=== PATIENT | male | born 1940 | race Caucasian/White ===

== ENCOUNTER 2018-08-11 10:36 | Inpatient (IN) ==
[2018-08-11 13:55] LABS: BASOPHILS % (AUTO) 0.4 % (0.2-1.0); EOSINOPHILS # (AUTO) 0.4 x10^3/uL (0.0-0.2); EOSINOPHILS % (AUTO) 4.3 % (0.9-2.9); HEMATOCRIT 32.9 % (42.0-54.0); HEMOGLOBIN 11.6 g/dL (13.5-18.0); LYMPHOCYTES # (AUTO) 1.2 X10^3/uL (1.3-2.9); LYMPHOCYTES % (AUTO) 13.1 % (21.0-51.0); MEAN CORPUSCULAR HEMOGLOBIN 31.9 pg (27.0-34.0); MEAN CORPUSCULAR HGB CONC 35.3 g/dL (33.0-35.0); MEAN CORPUSCULAR VOLUME 90.2 fL (80.0-100.0); MEAN PLATELET VOLUME 8.1 fL (7.4-11.0); MONOCYTES # (AUTO) 1.1 x10^3/uL (0.3-0.8); MONOCYTES % (AUTO) 12.1 % (0.0-13.0); NEUTROPHILS # (AUTO) 6.6 x10^3/uL (2.2-4.8); NEUTROPHILS % (AUTO) 70.1 % (42.0-75.0); PLATELET COUNT 177 X10^3/uL (150.0-450.0); RED BLOOD COUNT 3.65 X10^6/uL (4.7-6.0); RED CELL DISTRIBUTION WIDTH 13.5 % (11.6-16.5); WHITE BLOOD COUNT 9.4 X10^3/uL (3.6-10.0)
[2018-08-11 14:04] LABS: ALANINE AMINOTRANSFERASE 34 Units/L (12-78); ALBUMIN 3.1 g/dL (3.4-5.0); ALKALINE PHOSPHATASE 78 Units/L (46-116); ASPARTATE AMINO TRANSFERASE 36 Units/L (15-37); BLOOD UREA NITROGEN 41 mg/dL (7-18); CALCIUM 8.4 mg/dL (8.5-10.1); CARBON DIOXIDE 24.7 mmol/L (21-32); CHLORIDE 102 mmol/L (98-107); COR CA(FOR HYPOALB) 9.1 mg/dL (8.5-10.1); CREATININE 1.92 mg/dL (0.70-1.30); SODIUM 136 mmol/L (136-145); TOTAL PROTEIN 6.7 g/dL (6.4-8.2); eGFR NON BLACK RACES 36 (>60)
[2018-08-11 14:31] VITALS: BMI 25.1
[2018-08-11 14:40] LABS: BILIRUBIN,URINE NEGATIVE (NEGATIVE); BLOOD/HEMOGLOBIN,URINE NEGATIVE (NEGATIVE); GLUCOSE, URINE NEGATIVE (NEGATIVE); KETONES,URINE NEGATIVE (NEGATIVE); LEUKOCYTE ESTERASE ,URINE NEGATIVE (NEGATIVE); NITRITES,URINE NEGATIVE (NEGATIVE); PROTEIN,URINE 1+ (NEGATIVE); UROBILINOGEN,URINE NORMAL (NORMAL)
[2018-08-11 14:47] LABS: APPEARANCE,URINE CLEAR (CLEAR); BACTERIA,URINE NEGATIVE /HPF (NEGATIVE); COLOR,URINE YELLOW (YELLOW); RBC,URINE 0-2 /HPF (NONE SEEN); SQUAMOUS EPITHELIAL CELL,UR RARE /HPF (NEGATIVE)
[2018-08-11] MEDS: FLAGYL IV PREMIX 500 MG BAG 500 MG/100 ML BAG IV SCH ×2 (15:40→22:00)
[2018-08-11] MEDS: NS 1000 ML 1,000 ML IV SCH (15:40)
--- NOTE | 2018-08-11 19:12 | DR.UPDATE ---
H&P Update History and Physical Update: WAS SEEN IN THE OFFICE TODAY. A H&P WAS COMPLETED PRIOR TO ADMISSION. PATIENT HAS BEEN SEEN AND EXAMINED WITH NO CHANGES NOTED TO H&P. Changes noted: NO Yes with the following:
[2018-08-11] MEDS: FLOMAX PO SCH (20:35)
[2018-08-11] MEDS: CIPRO IV 400 MG PREMIX* 400 MG/200 ML IV.SOLN. IV SCH (20:35)
[2018-08-12 05:13] LABS: BASOPHILS % (AUTO) 0.7 % (0.2-1.0); EOSINOPHILS # (AUTO) 0.5 x10^3/uL (0.0-0.2); EOSINOPHILS % (AUTO) 8.5 % (0.9-2.9); HEMATOCRIT 33.4 % (42.0-54.0); HEMOGLOBIN 11.8 g/dL (13.5-18.0); LYMPHOCYTES # (AUTO) 1.2 X10^3/uL (1.3-2.9); LYMPHOCYTES % (AUTO) 19.5 % (21.0-51.0); MEAN CORPUSCULAR HEMOGLOBIN 31.7 pg (27.0-34.0); MEAN CORPUSCULAR HGB CONC 35.3 g/dL (33.0-35.0); MEAN CORPUSCULAR VOLUME 89.9 fL (80.0-100.0); MEAN PLATELET VOLUME 8.5 fL (7.4-11.0); MONOCYTES # (AUTO) 0.8 x10^3/uL (0.3-0.8); MONOCYTES % (AUTO) 13.2 % (0.0-13.0); NEUTROPHILS # (AUTO) 3.6 x10^3/uL (2.2-4.8); NEUTROPHILS % (AUTO) 58.1 % (42.0-75.0); PLATELET COUNT 172 X10^3/uL (150.0-450.0); RED BLOOD COUNT 3.71 X10^6/uL (4.7-6.0); RED CELL DISTRIBUTION WIDTH 13.3 % (11.6-16.5); WHITE BLOOD COUNT 6.2 X10^3/uL (3.6-10.0)
[2018-08-12] MEDS: FLAGYL IV PREMIX 500 MG BAG 500 MG/100 ML BAG IV SCH ×3 (05:16→22:15)
[2018-08-12 05:20] LABS: ALANINE AMINOTRANSFERASE 31 Units/L (12-78); ALKALINE PHOSPHATASE 74 Units/L (46-116); ASPARTATE AMINO TRANSFERASE 32 Units/L (15-37); BLOOD UREA NITROGEN 34 mg/dL (7-18); CALCIUM 8.7 mg/dL (8.5-10.1); CARBON DIOXIDE 27.2 mmol/L (21-32); CHLORIDE 106 mmol/L (98-107); COR CA(FOR HYPOALB) 9.5 mg/dL (8.5-10.1); CREATININE 1.79 mg/dL (0.70-1.30); SODIUM 140 mmol/L (136-145); TOTAL PROTEIN 6.6 g/dL (6.4-8.2); eGFR NON BLACK RACES 39 (>60)
[2018-08-12] MEDS: NS 1000 ML 1,000 ML IV SCH ×2 (05:39→18:11)
[2018-08-12] MEDS ORDERED: ZESTRIL TAB 20 MG ONE (08:14)
[2018-08-12] MEDS: ZESTRIL TAB 20 MG PO SCH (09:41)
[2018-08-12] MEDS: CIPRO IV 400 MG PREMIX* 400 MG/200 ML IV.SOLN. IV SCH ×2 (09:41→20:51)
[2018-08-12] MEDS ORDERED: ALLOPURINOL 150 MG PO SCH (09:45)
[2018-08-12] MEDS: ZYLOPRIM PO SCH (11:30)
[2018-08-12] MEDS: FLOMAX PO SCH (20:52)
[2018-08-13] MEDS: NS 1000 ML 1,000 ML IV SCH ×4 (03:17→21:14)
[2018-08-13 05:04] LABS: BASOPHILS % (AUTO) 0.5 % (0.2-1.0); EOSINOPHILS # (AUTO) 0.4 x10^3/uL (0.0-0.2); EOSINOPHILS % (AUTO) 7.9 % (0.9-2.9); LYMPHOCYTES # (AUTO) 0.9 X10^3/uL (1.3-2.9); LYMPHOCYTES % (AUTO) 15.9 % (21.0-51.0); MEAN CORPUSCULAR HEMOGLOBIN 31.4 pg (27.0-34.0); MEAN CORPUSCULAR HGB CONC 35.4 g/dL (33.0-35.0); MEAN CORPUSCULAR VOLUME 88.8 fL (80.0-100.0); MEAN PLATELET VOLUME 8.2 fL (7.4-11.0); MONOCYTES # (AUTO) 0.7 x10^3/uL (0.3-0.8); MONOCYTES % (AUTO) 12.7 % (0.0-13.0); NEUTROPHILS # (AUTO) 3.5 x10^3/uL (2.2-4.8); PLATELET COUNT 170 X10^3/uL (150.0-450.0); RED BLOOD COUNT 3.49 X10^6/uL (4.7-6.0); RED CELL DISTRIBUTION WIDTH 13.7 % (11.6-16.5); WHITE BLOOD COUNT 5.5 X10^3/uL (3.6-10.0)
[2018-08-13] MEDS: FLAGYL IV PREMIX 500 MG BAG 500 MG/100 ML BAG IV SCH ×3 (05:12→21:13)
[2018-08-13 05:14] LABS: ALANINE AMINOTRANSFERASE 26 Units/L (12-78); ALBUMIN 2.7 g/dL (3.4-5.0); ALKALINE PHOSPHATASE 68 Units/L (46-116); ASPARTATE AMINO TRANSFERASE 26 Units/L (15-37); BLOOD UREA NITROGEN 24 mg/dL (7-18); CALCIUM 8.3 mg/dL (8.5-10.1); CARBON DIOXIDE 25.2 mmol/L (21-32); CHLORIDE 108 mmol/L (98-107); COR CA(FOR HYPOALB) 9.3 mg/dL (8.5-10.1); CREATININE 1.58 mg/dL (0.70-1.30); SODIUM 141 mmol/L (136-145); eGFR NON BLACK RACES 45 (>60)
[2018-08-13] MEDS ORDERED: ZESTRIL TAB 20 MG ONE (08:56)
[2018-08-13] MEDS: CIPRO IV 400 MG PREMIX* 400 MG/200 ML IV.SOLN. IV SCH ×2 (09:09→20:08)
[2018-08-13] MEDS: ZYLOPRIM PO SCH (09:10)
[2018-08-13] MEDS: ZESTRIL TAB 20 MG PO SCH (09:10)
--- NOTE | 2018-08-13 10:18 | PCM.PROG ---
Progress Note - Progress Note for Day of Date of Exam: 08/12/18 - Subjective Subjective: WAS ADMITTED FOR ACUTE DIVERTICULITIS WITH QUESTIONABLE DEVELOPING ABSCESS SECONDARY TO A CONTAINED PERFORATION. HE REPORTS THAT PAIN STARTED ABOUT 10 DAYS AGO. TODAY, HE IS ALERT AND ORIENTED, LYING IN BED ON MORNING ROUNDS. HE CONTINUES WITH MODERATE PAIN, BUT REPORTS THAT IT IS SLIGHTLY BETTER THAN IT HAS BEEN. HE DENIES NAUSEA, VOMITING, OR FEVER. HIS VITALS TODAY ARE 97.8-51-20-96%-124/59. LABS WERE OBTAINED. ABNORMAL LAB VALUES INCLUDE THE FOLLOWING: RBC 3.71, HGB 11.8, HCT 33.4, BUN 34, CREATININE 1.79, ALBUMIN 3.0. WE CONSULTED . HE DOES NOT FEEL THAT SURGICAL INTERVENTION IS NEEDED AT THIS TIME. HE ADVANCED HIM TO A CLEAR LIQUID DIET. HE IS CURRENTLY RECEIVING CIPRO AND FLAGYL IV. WE WILL CONTINUE WITH CURRENT PLAN OF CARE TODAY. OTHERWISE, WE PLAN TO FOLLOW UP WITH AM LABS AND CONTINUE TO MONITOR PATIENT. - Past Medical Family Social History Past Med/Fam/Surg Hx: No changes since H&P Allergies: Allergies IVP DYE Adverse Reaction (Uncoded 08/11/18 10:52) - Review of Systems ROS: No change since H&P - Vital Signs and I&O's Vital Signs: Temperature 98.8 F Pulse Rate [Left Brachial] 55 Respiratory Rate 20 Blood Pressure [Left Arm] 123/60 Blood Pressure [Right Arm] 139/64 Blood Pressure [Standing] 86/41 Blood Pressure [Sitting] 98/53 Blood Pressure [Lying] 94/53 Blood Pressure 178/79 O2 Sat by Pulse Oximetry 98 Intake and Output: Intake & Output 08/10/18 08/11/18 08/12/18 08/13/18 11:59 11:59 11:59 11:59 Intake Total 825 / 825 3230 / 3230 Output Total 3400 / 3400 Balance 825 / 825 -170 / -170 - Physical Exam Oriented: Normal Eyes: Normal Ear: Normal Nose: Normal Throat: Normal Respiratory: Normal Cardiovascular: Normal : Normal Auscultation: Bowel Sounds: Normal Palpation: Normal Tenderness: Diffuse, Moderate. negative: Rebound, Guarding, Rigidity Skin: Normal Musculoskeletal: Normal Psychiatric: Normal Mood Description: Calm Affect: Normal Speech Pattern: Clear, Appropriate - Laboratory and Diagnostics Result Diagrams: 08/13/18 04:40 08/13/18 04:40 Labs: Laboratory WBC 5.5 X10^3/uL (3.6-10.0) 08/13/18 04:40 RBC 3.49 X10^6/uL (4.7-6.0) L 08/13/18 04:40 Hgb 11.0 g/dL (13.5-18.0) L 08/13/18 04:40 Hct 31.0 % (42.0-54.0) L 08/13/18 04:40 MCV 88.8 fL (80.0-100.0) 08/13/18 04:40 MCH 31.4 pg (27.0-34.0) 08/13/18 04:40 MCHC 35.4 g/dL (33.0-35.0) H 08/13/18 04:40 RDW 13.7 % (11.6-16.5) 08/13/18 04:40 Plt Count 170 X10^3/uL (150.0-450.0) 08/13/18 04:40 MPV 8.2 fL (7.4-11.0) 08/13/18 04:40 Neut % (Auto) 63.0 % (42.0-75.0) 08/13/18 04:40 Lymph % (Auto) 15.9 % (21.0-51.0) L 08/13/18 04:40 [place] % (Auto) 12.7 % (0.0-13.0) 08/13/18 04:40 Eos % (Auto) 7.9 % (0.9-2.9) H 08/13/18 04:40 Baso % (Auto) 0.5 % (0.2-1.0) 08/13/18 04:40 Neut # (Auto) 3.5 x10^3/uL (2.2-4.8) 08/13/18 04:40 Lymph # (Auto) 0.9 X10^3/uL (1.3-2.9) L 08/13/18 04:40 [place] # (Auto) 0.7 x10^3/uL (0.3-0.8) 08/13/18 04:40 Eos # (Auto) 0.4 x10^3/uL (0.0-0.2) H 08/13/18 04:40 Baso # (Auto) 0.0 X10^3/uL (0.0-0.1) 08/13/18 04:40 Absolute Nucleated RBC 0.0 /100WBC 08/13/18 04:40 Sodium 141 mmol/L (136-145) 08/13/18 04:40 Corrected Sodium TNP 08/13/18 04:40 Potassium 4.6 mmol/L (3.5-5.1) 08/13/18 04:40 Chloride 108 mmol/L (98-107) H 08/13/18 04:40 Carbon Dioxide 25.2 mmol/L (21-32) 08/13/18 04:40 BUN 24 mg/dL (7-18) H 08/13/18 04:40 Creatinine 1.58 mg/dL (0.70-1.30) H 08/13/18 04:40 Est GFR (MDRD) Af Amer 55 (>60) L 08/13/18 04:40 Est GFR (MDRD) Non-Af 45 (>60) L 08/13/18 04:40 Glucose 90 mg/dL (65-99) 08/13/18 04:40 Calcium 8.3 mg/dL (8.5-10.1) L 08/13/18 04:40 Corrected Calcium 9.3 mg/dL (8.5-10.1) 08/13/18 04:40 Total Bilirubin 0.30 mg/dL (0.2-1.0) 08/13/18 04:40 AST 26 Units/L (15-37) 08/13/18 04:40 ALT 26 Units/L (12-78) 08/13/18 04:40 Alkaline Phosphatase 68 Units/L (46-116) 08/13/18 04:40 Total Protein 6.0 g/dL (6.4-8.2) L 08/13/18 04:40 Albumin 2.7 g/dL (3.4-5.0) L 08/13/18 04:40 Globulin 3.3 g/dL (2.5-4.5) 08/13/18 04:40 Albumin/Globulin Ratio 0.8 Ratio (1.1-2.1) L 08/13/18 04:40 Specimen Type Clean catch urine 08/11/18 14:24 Urine Color Yellow (YELLOW) 08/11/18 14:24 Urine Appearance Clear (CLEAR) 08/11/18 14:24 Urine pH 5.0 (5.0 - 8.0) 08/11/18 14:24 Ur Specific [place] 1.010 (1.000-1.030) 08/11/18 14:24 Urine Protein 1+ (NEGATIVE) 08/11/18 14:24 Urine Glucose (UA) Negative (NEGATIVE) 08/11/18 14:24 Urine Ketones Negative (NEGATIVE) 08/11/18 14:24 Urine Occult Blood Negative (NEGATIVE) 08/11/18 14:24 Urine Nitrite Negative (NEGATIVE) 08/11/18 14:24 Urine Bilirubin Negative (NEGATIVE) 08/11/18 14:24 Urine Urobilinogen Normal (NORMAL) 08/11/18 14:24 Ur Leukocyte Esterase Negative (NEGATIVE) 08/11/18 14:24 Urine RBC 0-2 /HPF (NONE SEEN) 08/11/18 14:24 Urine WBC 3-5 /HPF (NONE SEEN) 08/11/18 14:24 Ur Squamous Epith Cells Rare /HPF (NEGATIVE) 08/11/18 14:24 Urine Bacteria Negative /HPF (NEGATIVE) 08/11/18 14:24 Ur Culture Indicated? No/not indicated 08/11/18 14:24 - Plan (1) Acute diverticulitis Status: Acute Plan: CLEAR LIQUID DIET, CIPRO IV, FLAGYL IV, CONTINUE TO MONITOR
--- NOTE | 2018-08-13 10:23 | PCM.PROG ---
Progress Note - Progress Note for Day of Date of Exam: 08/13/18 - Subjective Subjective: WAS ADMITTED FOR ACUTE DIVERTICULITIS WITH QUESTIONABLE DEVELOPING ABSCESS SECONDARY TO A CONTAINED PERFORATION. TODAY, HE IS ALERT AND ORIENTED, LYING IN BED ON MORNING ROUNDS. HE CONTINUES WITH MODERATE ABDOMINAL PAIN TODAY. HE DENIES NAUSEA, VOMITING, OR FEVER. HIS VITALS TODAY ARE 98.8-55-20-98%-139/64. LABS WERE OBTAINED. ABNORMAL LAB VALUES INCLUDE THE FOLLOWING: RBC 3.49, HGB 11.0, HCT 31.0, CHLORIDE 108, BUN 24, CREATININE 1.58, CALCIUM 8.3, TOTAL PROTEIN 6.0. HE IS TOLERATED A CLEAR LIQUID DIET WELL. HE IS CURRENTLY RECEIVING CIPRO AND FLAGYL IV. WE WILL CONTINUE WITH CURRENT PLAN OF CARE TODAY. WE WILL REPEAT A CT OF THE ABDOMEN/PELVIS WITH CONTRAST IN THE MORNING. OTHERWISE, WE PLAN TO FOLLOW UP WITH AM LABS AND CONTINUE TO MONITOR PATIENT. - Past Medical Family Social History Past Med/Fam/Surg Hx: No changes since H&P Allergies: Allergies IVP DYE Adverse Reaction (Uncoded 08/11/18 10:52) - Review of Systems ROS: No change since H&P - Vital Signs and I&O's Vital Signs: Temperature 98.8 F Pulse Rate [Left Brachial] 55 Respiratory Rate 20 Blood Pressure [Left Arm] 123/60 Blood Pressure [Right Arm] 139/64 Blood Pressure [Standing] 86/41 Blood Pressure [Sitting] 98/53 Blood Pressure [Lying] 94/53 Blood Pressure 178/79 O2 Sat by Pulse Oximetry 98 Intake and Output: Intake & Output 08/10/18 08/11/18 08/12/18 08/13/18 11:59 11:59 11:59 11:59 Intake Total 825 / 825 3230 / 3230 Output Total 3400 / 3400 Balance 825 / 825 -170 / -170 - Physical Exam Oriented: Normal Eyes: Normal Ear: Normal Nose: Normal Throat: Normal Respiratory: Normal Cardiovascular: Normal : Normal Auscultation: Bowel Sounds: Normal Palpation: Normal Tenderness: Diffuse, Moderate. negative: Rebound, Guarding, Rigidity Skin: Normal Musculoskeletal: Normal Psychiatric: Normal Mood Description: Calm Affect: Normal Speech Pattern: Clear, Appropriate - Laboratory and Diagnostics Result Diagrams: 08/13/18 04:40 08/13/18 04:40 Labs: Laboratory WBC 5.5 X10^3/uL (3.6-10.0) 08/13/18 04:40 RBC 3.49 X10^6/uL (4.7-6.0) L 08/13/18 04:40 Hgb 11.0 g/dL (13.5-18.0) L 08/13/18 04:40 Hct 31.0 % (42.0-54.0) L 08/13/18 04:40 MCV 88.8 fL (80.0-100.0) 08/13/18 04:40 MCH 31.4 pg (27.0-34.0) 08/13/18 04:40 MCHC 35.4 g/dL (33.0-35.0) H 08/13/18 04:40 RDW 13.7 % (11.6-16.5) 08/13/18 04:40 Plt Count 170 X10^3/uL (150.0-450.0) 08/13/18 04:40 MPV 8.2 fL (7.4-11.0) 08/13/18 04:40 Neut % (Auto) 63.0 % (42.0-75.0) 08/13/18 04:40 Lymph % (Auto) 15.9 % (21.0-51.0) L 08/13/18 04:40 [place] % (Auto) 12.7 % (0.0-13.0) 08/13/18 04:40 Eos % (Auto) 7.9 % (0.9-2.9) H 08/13/18 04:40 Baso % (Auto) 0.5 % (0.2-1.0) 08/13/18 04:40 Neut # (Auto) 3.5 x10^3/uL (2.2-4.8) 08/13/18 04:40 Lymph # (Auto) 0.9 X10^3/uL (1.3-2.9) L 08/13/18 04:40 [place] # (Auto) 0.7 x10^3/uL (0.3-0.8) 08/13/18 04:40 Eos # (Auto) 0.4 x10^3/uL (0.0-0.2) H 08/13/18 04:40 Baso # (Auto) 0.0 X10^3/uL (0.0-0.1) 08/13/18 04:40 Absolute Nucleated RBC 0.0 /100WBC 08/13/18 04:40 Sodium 141 mmol/L (136-145) 08/13/18 04:40 Corrected Sodium TNP 08/13/18 04:40 Potassium 4.6 mmol/L (3.5-5.1) 08/13/18 04:40 Chloride 108 mmol/L (98-107) H 08/13/18 04:40 Carbon Dioxide 25.2 mmol/L (21-32) 08/13/18 04:40 BUN 24 mg/dL (7-18) H 08/13/18 04:40 Creatinine 1.58 mg/dL (0.70-1.30) H 08/13/18 04:40 Est GFR (MDRD) Af Amer 55 (>60) L 08/13/18 04:40 Est GFR (MDRD) Non-Af 45 (>60) L 08/13/18 04:40 Glucose 90 mg/dL (65-99) 08/13/18 04:40 Calcium 8.3 mg/dL (8.5-10.1) L 08/13/18 04:40 Corrected Calcium 9.3 mg/dL (8.5-10.1) 08/13/18 04:40 Total Bilirubin 0.30 mg/dL (0.2-1.0) 08/13/18 04:40 AST 26 Units/L (15-37) 08/13/18 04:40 ALT 26 Units/L (12-78) 08/13/18 04:40 Alkaline Phosphatase 68 Units/L (46-116) 08/13/18 04:40 Total Protein 6.0 g/dL (6.4-8.2) L 08/13/18 04:40 Albumin 2.7 g/dL (3.4-5.0) L 08/13/18 04:40 Globulin 3.3 g/dL (2.5-4.5) 08/13/18 04:40 Albumin/Globulin Ratio 0.8 Ratio (1.1-2.1) L 08/13/18 04:40 Specimen Type Clean catch urine 08/11/18 14:24 Urine Color Yellow (YELLOW) 08/11/18 14:24 Urine Appearance Clear (CLEAR) 08/11/18 14:24 Urine pH 5.0 (5.0 - 8.0) 08/11/18 14:24 Ur Specific [place] 1.010 (1.000-1.030) 08/11/18 14:24 Urine Protein 1+ (NEGATIVE) 08/11/18 14:24 Urine Glucose (UA) Negative (NEGATIVE) 08/11/18 14:24 Urine Ketones Negative (NEGATIVE) 08/11/18 14:24 Urine Occult Blood Negative (NEGATIVE) 08/11/18 14:24 Urine Nitrite Negative (NEGATIVE) 08/11/18 14:24 Urine Bilirubin Negative (NEGATIVE) 08/11/18 14:24 Urine Urobilinogen Normal (NORMAL) 08/11/18 14:24 Ur Leukocyte Esterase Negative (NEGATIVE) 08/11/18 14:24 Urine RBC 0-2 /HPF (NONE SEEN) 08/11/18 14:24 Urine WBC 3-5 /HPF (NONE SEEN) 08/11/18 14:24 Ur Squamous Epith Cells Rare /HPF (NEGATIVE) 08/11/18 14:24 Urine Bacteria Negative /HPF (NEGATIVE) 08/11/18 14:24 Ur Culture Indicated? No/not indicated 08/11/18 14:24 - Plan (1) Acute diverticulitis Status: Acute Plan: CLEAR LIQUID DIET, CIPRO IV, FLAGYL IV, CONTINUE TO MONITOR
[2018-08-13] MEDS: FLOMAX PO SCH (20:08)
--- NOTE | 2018-08-13 23:50 | DR.PROGNOT ---
Hospital Progress Notes - Progress Note for Day of: Progress Note Date: 08/13/18 - Chief Complaint Chief Complaint: abdominal pain is much less , no nausea or vomiting . no fever . passing flatus - Past Medical Family Social History Past Med/Fam/Surg Hx: No changes since H&P, Changes noted (describe) Allergies: Allergies IVP DYE Adverse Reaction (Uncoded 08/11/18 10:52) - Review Of Systems ROS: No change since H&P - Vital Signs Vital Signs: Temperature 98.7 F Pulse Rate [Left Brachial] 56 Respiratory Rate 20 Blood Pressure [Left Arm] 123/60 Blood Pressure [Right Arm] 152/62 Blood Pressure [Standing] 86/41 Blood Pressure [Sitting] 98/53 Blood Pressure [Lying] 94/53 Blood Pressure 178/79 O2 Sat by Pulse Oximetry 98 - Physical Exam Oriented: Normal Eyes: Normal Ear: Normal Nose: Normal Throat: Normal Respiratory: Normal Cardiovascular: Normal : Normal GI:Auscultation: Normal GI:Palpation: Normal GI: Tenderness: Diffuse, LLQ, Moderate (soft abdomen with mild LLQ tenderness , n rebound .BS +). negative: Rebound, Guarding, Rigidity Skin: Normal Musculoskeletal: Normal Psychiatric: Normal Mood Description: Calm Affect: Normal Speech Pattern: Clear, Appropriate - Laboratory and Diagnostics Result Diagrams: 08/13/18 04:40 08/13/18 04:40 Labs: Laboratory WBC 5.5 X10^3/uL (3.6-10.0) 08/13/18 04:40 RBC 3.49 X10^6/uL (4.7-6.0) L 08/13/18 04:40 Hgb 11.0 g/dL (13.5-18.0) L 08/13/18 04:40 Hct 31.0 % (42.0-54.0) L 08/13/18 04:40 MCV 88.8 fL (80.0-100.0) 08/13/18 04:40 MCH 31.4 pg (27.0-34.0) 08/13/18 04:40 MCHC 35.4 g/dL (33.0-35.0) H 08/13/18 04:40 RDW 13.7 % (11.6-16.5) 08/13/18 04:40 Plt Count 170 X10^3/uL (150.0-450.0) 08/13/18 04:40 MPV 8.2 fL (7.4-11.0) 08/13/18 04:40 Neut % (Auto) 63.0 % (42.0-75.0) 08/13/18 04:40 Lymph % (Auto) 15.9 % (21.0-51.0) L 08/13/18 04:40 [place] % (Auto) 12.7 % (0.0-13.0) 08/13/18 04:40 Eos % (Auto) 7.9 % (0.9-2.9) H 08/13/18 04:40 Baso % (Auto) 0.5 % (0.2-1.0) 08/13/18 04:40 Neut # (Auto) 3.5 x10^3/uL (2.2-4.8) 08/13/18 04:40 Lymph # (Auto) 0.9 X10^3/uL (1.3-2.9) L 08/13/18 04:40 [place] # (Auto) 0.7 x10^3/uL (0.3-0.8) 08/13/18 04:40 Eos # (Auto) 0.4 x10^3/uL (0.0-0.2) H 08/13/18 04:40 Baso # (Auto) 0.0 X10^3/uL (0.0-0.1) 08/13/18 04:40 Absolute Nucleated RBC 0.0 /100WBC 08/13/18 04:40 Sodium 141 mmol/L (136-145) 08/13/18 04:40 Corrected Sodium TNP 08/13/18 04:40 Potassium 4.6 mmol/L (3.5-5.1) 08/13/18 04:40 Chloride 108 mmol/L (98-107) H 08/13/18 04:40 Carbon Dioxide 25.2 mmol/L (21-32) 08/13/18 04:40 BUN 24 mg/dL (7-18) H 08/13/18 04:40 Creatinine 1.58 mg/dL (0.70-1.30) H 08/13/18 04:40 Est GFR (MDRD) Af Amer 55 (>60) L 08/13/18 04:40 Est GFR (MDRD) Non-Af 45 (>60) L 08/13/18 04:40 Glucose 90 mg/dL (65-99) 08/13/18 04:40 Calcium 8.3 mg/dL (8.5-10.1) L 08/13/18 04:40 Corrected Calcium 9.3 mg/dL (8.5-10.1) 08/13/18 04:40 Total Bilirubin 0.30 mg/dL (0.2-1.0) 08/13/18 04:40 AST 26 Units/L (15-37) 08/13/18 04:40 ALT 26 Units/L (12-78) 08/13/18 04:40 Alkaline Phosphatase 68 Units/L (46-116) 08/13/18 04:40 Total Protein 6.0 g/dL (6.4-8.2) L 08/13/18 04:40 Albumin 2.7 g/dL (3.4-5.0) L 08/13/18 04:40 Globulin 3.3 g/dL (2.5-4.5) 08/13/18 04:40 Albumin/Globulin Ratio 0.8 Ratio (1.1-2.1) L 08/13/18 04:40 Specimen Type Clean catch urine 08/11/18 14:24 Urine Color Yellow (YELLOW) 08/11/18 14:24 Urine Appearance Clear (CLEAR) 08/11/18 14:24 Urine pH 5.0 (5.0 - 8.0) 08/11/18 14:24 Ur Specific [place] 1.010 (1.000-1.030) 08/11/18 14:24 Urine Protein 1+ (NEGATIVE) 08/11/18 14:24 Urine Glucose (UA) Negative (NEGATIVE) 08/11/18 14:24 Urine Ketones Negative (NEGATIVE) 08/11/18 14:24 Urine Occult Blood Negative (NEGATIVE) 08/11/18 14:24 Urine Nitrite Negative (NEGATIVE) 08/11/18 14:24 Urine Bilirubin Negative (NEGATIVE) 08/11/18 14:24 Urine Urobilinogen Normal (NORMAL) 08/11/18 14:24 Ur Leukocyte Esterase Negative (NEGATIVE) 08/11/18 14:24 Urine RBC 0-2 /HPF (NONE SEEN) 08/11/18 14:24 Urine WBC 3-5 /HPF (NONE SEEN) 08/11/18 14:24 Ur Squamous Epith Cells Rare /HPF (NEGATIVE) 08/11/18 14:24 Urine Bacteria Negative /HPF (NEGATIVE) 08/11/18 14:24 Ur Culture Indicated? No/not indicated 08/11/18 14:24 - Assessment and Plan 1: subsiding sigmoid diverticulitis . to advance diet and oral ATB for one week. future colonoscopy as out Pt . - Problem Patient Problems: Patient Problems Acute diverticulitis (Acute) K57.92
[2018-08-14] MEDS: FLAGYL IV PREMIX 500 MG BAG 500 MG/100 ML BAG IV SCH (05:06)
[2018-08-14 05:17] LABS: BASOPHILS % (AUTO) 0.4 % (0.2-1.0); EOSINOPHILS # (AUTO) 0.4 x10^3/uL (0.0-0.2); HEMATOCRIT 31.5 % (42.0-54.0); LYMPHOCYTES # (AUTO) 1.1 X10^3/uL (1.3-2.9); LYMPHOCYTES % (AUTO) 18.7 % (21.0-51.0); MEAN CORPUSCULAR HEMOGLOBIN 31.5 pg (27.0-34.0); MEAN CORPUSCULAR HGB CONC 34.9 g/dL (33.0-35.0); MEAN CORPUSCULAR VOLUME 90.4 fL (80.0-100.0); MEAN PLATELET VOLUME 8.4 fL (7.4-11.0); MONOCYTES # (AUTO) 0.7 x10^3/uL (0.3-0.8); MONOCYTES % (AUTO) 11.2 % (0.0-13.0); NEUTROPHILS # (AUTO) 3.8 x10^3/uL (2.2-4.8); NEUTROPHILS % (AUTO) 63.7 % (42.0-75.0); PLATELET COUNT 173 X10^3/uL (150.0-450.0); RED BLOOD COUNT 3.48 X10^6/uL (4.7-6.0); RED CELL DISTRIBUTION WIDTH 13.5 % (11.6-16.5)
[2018-08-14 05:31] LABS: ALANINE AMINOTRANSFERASE 25 Units/L (12-78); ALBUMIN 2.7 g/dL (3.4-5.0); ALKALINE PHOSPHATASE 64 Units/L (46-116); ASPARTATE AMINO TRANSFERASE 27 Units/L (15-37); BLOOD UREA NITROGEN 15 mg/dL (7-18); CALCIUM 8.2 mg/dL (8.5-10.1); CARBON DIOXIDE 23.6 mmol/L (21-32); CHLORIDE 110 mmol/L (98-107); COR CA(FOR HYPOALB) 9.2 mg/dL (8.5-10.1); SODIUM 142 mmol/L (136-145); TOTAL PROTEIN 5.8 g/dL (6.4-8.2); eGFR NON BLACK RACES 48 (>60)
[2018-08-14] MEDS ORDERED: ZESTRIL TAB 20 MG ONE (10:37)
--- NOTE | 2018-08-14 10:53 | CT ---
CT OF THE ABDOMEN AND PELVIS WITH CONTRAST HISTORY: Left lower quadrant pain. Diverticulitis. Comparison: 08/10/2018 Technique: Multiple axial images of the abdomen and pelvis were obtained from the lung bases to the pubic symphy sis follow the administration of IV contrast as well as oral contrast. Dose reduction techniques inc luding Automated Exposure Control (AEC) and adjustment of mA and kV were utlized. Findings: The heart is normal in size. There is no pericardial effusion. Emphysema of the lung bases.. Liver and spleen are normal in size, enhancement characteristics and contour. No focal lesions. The p ortal vein is patent. No ductal dilitation. Gallbladder is present. No calcified gallstones or gallbl adder wall thickening. The pancreas is unremarkable. Adrenal glands are normal. Kidneys enhance symme trically without hydronephrosis or nephrolithiasis. Small nonenhancing lesion of the right upper vic e of the kidney series 5, image 32 measuring 1.2 cm Mild inflammation in the region of previously identified left colonic diverticulitis. Inflammatory ch anges have decreased in prominence when compared to prior. No evidence of perforation or abscess form ation.. No abnormal appearing mesenteric or retroperitoneal lymph nodes. No free fluid or fluid malika ections. The bladder is normal in appearance. Prostate measures 5.6 cm. No free fluid or abnormal pelvic lymph nodes. No aggressive osseous lesions. IMPRESSION: 1. Improvement in the appearance of patient's left-sided diverticulitis. No evidence of perforation or abscess. 2. Enlarged prostate. 3. Nonenhancing lesion in the right kidney is likely a simple renal cyst. Reported By:
[2018-08-14 12:27] VITALS: BP 161/72
[2018-08-19 06:25] LABS: PSA TOTAL 1.5 ng/mL (0.0-4.0)
--- NOTE | 2018-09-16 01:10 | DR.CARTERD ---
- Discharge Summary for: Discharge Summary for Date of:: 08/14/18 - Admission Date Date of Admission: 08/11/18 - Admission Diagnoses Admission Diagnosis: (1) Acute diverticulitis (2) Abdominal pain - Discharge Date Discharge Date: 08/14/18 - Discharge Diagnoses Discharge Diagnosis: (1) Acute diverticulitis (2) Abdominal pain - Hospital Course Hospital Course: Day one, Mr. Box presented to the hospital as a direct admission with reports of abdominal pain. The patient started to have left lower quadrant pains that started about 10 days prior. The pain was localized to the left lower quadrant with associated pain of the anterior thigh. The pain started to localize to the left side of the abdomen and left flank. The pain was moderate to severe. An outpatient abdomen and pelvis CT was obtained which revealed diverticulosis of the distal descending and sigmoid colon, with focal wall thickening and moderate adjacent inflammatory changes at the distal descending colon with findings consistent with acute diverticulitis. Patient admitted to the hospital and started on IV antibiotics of Flagyl and Cipro and IV fluids. Patient noted with left lower quadrant tenderness on palpation. On auscultation of abdominal quadrants patient noted with bowel sounds were slightly diminished on the left lower quadrant. Medical History: Hypertension, Pericarditis, Gout, Skin CA. Medications: Flagyl 500mg IV TID, NS @125ml/hr, Cipro 400mg IV Q12hr, Flomax 0.4mg po Qpm. Abnormal Labs: RBC 3.65, Hgb 11.6, Hct 32.9, MCHC 35.3, BUN 41, Creatinine 1.92, GFR af 44, GFR non 36, Calcium 8.4, Albumin 3.1, A/G Ratio 0.9. Urinalysis: Protein 1+, RBC 0-2, WBC 3-5. Day two, patient continued with abdominal pain. We consulted Dr. Lewis. He did not feel that surgical intervention was needed. He advance diet to clear and continued to follow. We continued IV Cipro and Flagyl. Day three, patient continued with abdominal pain. He was tolerating clear liquid diet well. He continued on Cipro and Flagyl IV. He denied nausea/vomiting. He was passing flatus. Day four, patient reported he was feeling better. Patient reported improvement in symptoms. He was noted with only mild abdominal tenderness upon palpation. Vital signs stable, afebrile. Labs wnl. We planned for discharge. Instructions for medications and follow up were discussed with patient and family, both voiced understanding. Patient discharged home in stable condition with family. - Discharge Medications Discharge Medications: Home Medication List aspirin [Aspir-81] 81 mg PO QDAY 08/11/18 [History] lisinopril-hydrochlorothiazide 1 tab PO DAILY 08/11/18 [History] tamsulosin 0.8 mg PO DAILY 08/11/18 [History] ciprofloxacin HCl [Cipro] 500 mg PO BID #28 tab 08/14/18 [Rx] ciprofloxacin HCl [Cipro] 500 mg PO Q12H #28 tab 08/14/18 [Rx] metronidazole [Flagyl] 500 mg PO TID #42 tab 08/14/18 [Rx] Prescriptions: ciprofloxacin HCl [Cipro] Joey Kumar ciprofloxacin HCl [Cipro] Joey Kumar metronidazole [Flagyl] Joey Kumar - Discharge Disposition Discharge Disposition: Patient is to follow up with REY Gray in one week.
== END 2018-08-14 13:20 | disposition home or self-care (01) | DRG 392 ==
LOC: MED/SURG 12:12
PROVIDERS: ADMIT Internal Medicine; ATTEND Internal Medicine
DX: R07.89 Other chest pain; I12.9 Hypertensive chronic kidney disease with stage 1 through stage 4 chronic kidney disease, or unspecified chronic kidney disease; R10.84 Generalized abdominal pain; N40.0 Benign prostatic hyperplasia without lower urinary tract symptoms; R53.83 Other fatigue; J01.00 Acute maxillary sinusitis, unspecified; N18.9 Chronic kidney disease, unspecified; J30.9 Allergic rhinitis, unspecified; K57.32 Diverticulitis of large intestine without perforation or abscess without bleeding
CPT/HCPCS: 36415; 74176; 74177; 80053; 81001; 82565; 84153; 84154; 84520; 85025; A4222; S0030; J0744; J7030